=== PATIENT | male | born 1985 | race Caucasian/White ===

== ENCOUNTER 2024-11-05 06:56 | Emergency (ER) | payer BC, SELFPAY ==
[2024-11-05 07:01] VITALS: BP 128/75; PULSE 130; RESP 22; TEMP 36.7; O2SAT 95
[2024-11-05 07:15] VITALS: O2SAT 96
[2024-11-05 07:18] VITALS: BP 128/76; PULSE 109; RESP 16; O2SAT 96
[2024-11-05] MEDS: EPINEPHrine HCL INJ 1 MG/ML AMPUL 0.5 MG IM (07:40)
[2024-11-05] MEDS: FAMOTIDINE 20 MG/2 ML VIAL 40 MG IV PUSH (07:40)
[2024-11-05] MEDS: dexAMETHasone SOD PHOS INJ 10 MG/ML 1 ML VIAL IV PUSH (07:41)
[2024-11-05] MEDS: LACTATED RINGERS 2,000 ML 999 ML IV CONT (07:41)
[2024-11-05] MEDS: diphenhydrAMINE HCl INJ 50 MG/ML VIAL IV PUSH (07:41)
[2024-11-05 07:47] VITALS: BP 118/88; PULSE 85; RESP 18; O2SAT 98
--- NOTE | 2024-11-05 07:49 | ED.GENADULT ---
HPI - General Adult General Chief complaint: Allergic Reaction Stated complaint: STUNG 2X ITCHY,REDNESS,FACIAL SWELLING Time Seen by Provider: 11/05/24 07:30 History of Present Illness HPI narrative: This is a 39-year-old male with a allergy to bees presenting after 2 bee stings. Be he was stung earlier this morning in the back and in the arm. He is now lightheaded, pale, and has chest pressure. He is not have any wheezing nausea vomiting or diarrhea. He has not had an anaphylactic reaction to bee stings in the past. Related Data Allergies Allergy/AdvReac Type Severity Reaction Status Date / Time venom-wasp Allergy Swelling Verified 11/05/24 07:19 of Lip/Tongue/Throat Exam Narrative: APPEARANCE: Pale clammy Head: atraumatic. EYES: EOMI, NOSE: Atraumatic NECK: Trachea midline RESPIRATORY: No increased rate of breathing CARDIOVASCULAR: Tachycardic ABDOMINAL: Soft nontender MUSCULOSKELETAl: No obvious deformities NEURO: Alert. Moving 4/4 extremities SKIN:: No significant swelling over the bite sites PSYCHIATRIC: Normal affect Course Vital Signs Vital signs: Vital Signs Temperature 98.1 F 11/05/24 07:01 Pulse Rate 130 H 11/05/24 07:01 Respiratory Rate 22 H 11/05/24 07:01 Blood Pressure 128/75 11/05/24 07:01 Pulse Oximetry 95 11/05/24 07:01 Oxygen Delivery Room Air 11/05/24 07:01 Temperature 98.1 F 11/05/24 07:01 Pulse Rate 85 11/05/24 07:47 Respiratory Rate 18 11/05/24 07:47 Blood Pressure 118/88 11/05/24 07:47 Pulse Oximetry 98 11/05/24 07:47 Oxygen Delivery Room Air 11/05/24 07:15 Medical Decision Making [facility] Narrative Medical decision making narrative: -Course: 39-year-old male presenting anaphylactic shock from a bee sting. Given epinephrine dexamethasone Benadryl Pepcid and fluids. On re-evaluation patient's color had returned. His vital signs stabilized and he is looking much better. He was monitored for 4 hours with no recurrence of his symptoms. I discussed anaphylactic shock him length he will not carry a an EpiPen with him at all times. Patient discharged with return precautions. -DDX includes but is not limited to: Anaphylactic shock, allergies Vital Signs Vital Signs: Vital Signs Temperature 98.1 F 11/05/24 07:01 Pulse Rate 130 H 11/05/24 07:01 Respiratory Rate 22 H 11/05/24 07:01 Blood Pressure 128/75 11/05/24 07:01 Pulse Oximetry 95 11/05/24 07:01 Oxygen Delivery Room Air 11/05/24 07:01 Temperature 98.1 F 11/05/24 07:01 Pulse Rate 85 11/05/24 07:47 Respiratory Rate 18 11/05/24 07:47 Blood Pressure 118/88 11/05/24 07:47 Pulse Oximetry 98 11/05/24 07:47 Oxygen Delivery Room Air 11/05/24 07:15 Discharge Plan Discharge Clinical Impression: Anaphylaxis Patient Disposition: Home Condition: Stable Instructions: Antibiotic Form, Anaphylaxis (ED) Additional Instructions: You were seen in the emergency department for anaphylaxis. Please make sure the carry an EpiPen with you at all times. If you are stung by a wasp inject the epipen and return to the closest emergency department otherwise follow-up with your primary care physician in 5-7 days. Patient Language: Gabonese Prescriptions: New epinephrine 0.3 mg/0.3 mL auto-injector 0.3 mg IM ONCE Qty: 2 0RF Rx Instructions: as a single dose; may repeat once Follow-up/Referrals: Bradley,Piotr Richard MD [Primary Care Provider] -
[2024-11-05 10:23] VITALS: BP 125/65; PULSE 92; RESP 16; O2SAT 99
== END 2024-11-05 11:38 | disposition home or self-care (01) ==
PROVIDERS: Emergency Provider Emergency Medicine; PCP Internal Medicine
DX: T63.441A Toxic effect of venom of bees, accidental (unintentional), initial encounter (principal); T78.2XXA Anaphylactic shock, unspecified, initial encounter
CPT/HCPCS: 96361; 96372; 96374; 96375; 99284; J0171; J1100; J1200; J7030; J7120